=== PATIENT | female | born 1985 | race Caucasian/White ===

== ENCOUNTER 2017-07-09 21:37 | Emergency (ER) | payer OTHER ==
[2017-07-09 21:46] VITALS: BP 127/82
[2017-07-09] MEDS ORDERED: Acetaminophen/HYDROcodone 325-10 MG Tab PO ONE (22:13)
[2017-07-09] MEDS ORDERED: Take Home: Acetaminophen/HYDROcodone 325-10 MG, 5 Tab Pack PO ONE (23:41)
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
== END 2017-07-09 23:59 | disposition home or self-care (01) ==
LOC: VM.ED 21:37
DX: S10.93XA Contusion of unspecified part of neck, initial encounter (principal); F17.210 Nicotine dependence, cigarettes, uncomplicated; V47.5XXA Car driver injured in collision with fixed or stationary object in traffic accident, initial encounter
CPT/HCPCS: 70450; 72100; 72125; 73502; 99284; A9270

== ENCOUNTER 2024-11-14 23:34 | Emergency (ER) | payer BC ==
[2024-11-14] MEDS: Dexamethasone 4 MG/ML SDV IVPUSH ONE (23:57)
[2024-11-15] LABS: BASOPHILS PERCENT AUTO 0.3 % (0.2-1.2); EOSINOPHILS ABSOLUTE AUTO 0.3 x10^3/uL (0.0-0.5); EOSINOPHILS PERCENT AUTO 2.2 % (0.0-4.0); HEMATOCRIT 37.8 % (33.0-47.0); IMMATURE GRAN ABSOLUTE AUTO 0.02 x10^3/uL (0.00-0.07); LYMPHOCYTES ABSOLUTE AUTO 3.8 x10^3/uL (1.0-4.8); LYMPHOCYTES PERCENT AUTO 28.5 % (25.0-50.0); MEAN CORPUSCULAR HEMOGLOBIN 31.3 pg (26.0-32.0); MEAN CORPUSCULAR HGB CONC 34.4 g/dL (32.0-36.0); MEAN CORPUSCULAR VOLUME 91.1 fL (78.0-93.0); MONOCYTES PERCENT AUTO 7.4 % (2.0-11.0); NEUTROPHILS ABSOLUTE AUTO 8.3 x10^3/uL (1.8-7.7); NEUTROPHILS PERCENT AUTO 61.5 % (50.0-80.0); PLATELET COUNT,PLT 320 x10^3/uL (130-400); RED BLOOD CELL COUNT 4.15 x10^6/uL (4.00-5.50); WHITE BLOOD CELL COUNT,WBC 13.4 x10^3/uL (4.0-10.0)
[2024-11-15 00:17] LABS: A/G RATIO 1.13; ALBUMIN 3.5 g/dL (3.4-5.0); BILIRUBIN TOTAL 0.4 mg/dL (0.2-1.0); C-REACTIVE PROTEIN 1.3 mg/dL (<=0.50); CALCIUM 7.8 mg/dL (8.5-10.1); CREATININE 0.8 mg/dL (0.55-1.02); EST CRCL DRUG DOSING (CG) 78.87 mL/min; POTASSIUM,K 3.3 mmol/L (3.5-5.1); PROTEIN TOTAL,TP 6.6 g/dL (6.4-8.2)
[2024-11-15 00:18] LABS: ANION GAP 14.3 mmol/L (5-15)
[2024-11-15] MEDS: LORazepam 2 MG/ML SDV IVPUSH ONE ×3 (00:31→03:05)
[2024-11-15] MEDS: Ondansetron 4 MG/2 ML SDV IVPUSH ONE (00:47)
[2024-11-15 02:53] VITALS: BP 127/87; PULSE 83
[2024-11-15] MEDS: Iopamidol 612 MG/ML 100 ML Bottle IVPUSH ONE (12:24)
== END 2024-11-15 03:10 | disposition short-term general hospital (02) ==
LOC: VM.ED 23:34
DX: L02.11 Cutaneous abscess of neck (principal); J98.8 Other specified respiratory disorders; S10.93XA Contusion of unspecified part of neck, initial encounter; L03.221 Cellulitis of neck; Z88.0 Allergy status to penicillin; Z88.2 Allergy status to sulfonamides; Z88.1 Allergy status to other antibiotic agents; Z91.040 Latex allergy status; X58.XXXA Exposure to other specified factors, initial encounter
CPT/HCPCS: 80053; 83605; 85025; 86140; 96374; 96375; 96376; 99285; J1100; J2060; J2405; Q9967; 99284